=== PATIENT | female | born 1970 | race Caucasian/White ===

== ENCOUNTER 2023-06-10 16:34 | Emergency (ER) | payer MEDICAID, SELFPAY ==
[2023-06-10 17:10] VITALS: BP 138/81; PULSE 93; RESP 16; TEMP 36.2; O2SAT 96
--- NOTE | 2023-06-10 17:25 | ED_ITS ---
HPI - General Adult General Date Seen: 06/10/23 Chief complaint: Cough Stated complaint: Covid+ Time Seen by Provider: 06/10/23 17:20 Source: patient, family and RN notes reviewed Mode of arrival: ambulatory Limitations: no limitations History of Present Illness HPI narrative: Patient is a 52-year-old female accompanying her sister and [id number]. Her sister is here with a positive COVID test. She has maybe had some mild cough today. Overall she is not feeling ill. All 3 of them had COVID before and she had a rather benign course per report. She does have underlying diabetes and would like to be treated if she has it. No sore throat, no fevers, no body aches, no GI symptoms, no congestion. Related Data Home Medications Medication Instructions Recorded Confirmed gabapentin .ROUTE 06/10/23 metformin .ROUTE 06/10/23 Allergies Allergy/AdvReac Type Severity Reaction Status Date / Time eggs Allergy Uncoded 06/10/23 17:08 Review of Systems Status of ROS: Reports: 6 or more systems reviewed and unremarkable except as noted in History and below Exam Const: Vital Signs, click to edit/add: Vital Signs - 24 hr 06/10/23 17:10 Temperature 97.2 F L Pulse Rate [Right Pulse Oximeter] 93 Respiratory Rate 16 Blood Pressure [Ri ght Upper Arm] 138/81 Pulse Oximetry 96 Oxygen Delivery Me thod Room Air This obese 52-year-old female is alert, interactive, no apparent distress. Pupils equal round reactive, sclerae clear, extraocular muscles intact. Symmetr ical facial function/normal. Anterior nares normal. Oropharynx with peers tongue but otherwise normal mucosa, no exudates or erythema, speech is normal. Neck is supple, no cervical adenopathy, no thyromegaly masses or nodules. Lungs are clear, good air entry, no wheezing or crackles. CV regular rate and rhythm, no murmur, normal S1 and S2. Documenting provider has reviewed patient's vital signs: yes Course Course ED Course: Nursing staff has collected the COVID. Need to see if we can find prior creatinine on her and epic. Vital Signs Vital signs: Initial Vital Signs Temperature 97.2 F L 06/10/23 17:10 Temperature Source Temporal Artery Scan 06/10/23 17:10 Pulse Rate 93 06/10/23 17:10 Respiratory Rate 16 06/10/23 17:10 Blood Pressure 138/81 06/10/23 17:10 Blood Pressure Mean 100 06/10/23 17:10 Blood Pressure Position Sitting 06/10/23 17:10 Pulse Oximetry 96 06/10/23 17:10 Oxygen Delivery Method Room Air 06/10/23 17:10 Vital Signs Temperature 97.2 F L 06/10/23 17:10 Pulse Rate 93 06/10/23 17:10 Respiratory Rate 16 06/10/23 17:10 Blood Pressure 138/81 06/10/23 17:10 Pulse Oximetry 96 06/10/23 17:10 Oxygen Delivery Method Room Air 06/10/23 17:10 Temperature 97.2 F L 06/10/23 17:10 Pulse Rate 93 06/10/23 17:10 Respiratory Rate 16 06/10/23 17:10 Blood Pressure 138/81 06/10/23 17:10 Pulse Oximetry 96 06/10/23 17:10 Oxygen Delivery Method Room Air 06/10/23 17:10 Medical Decision Making Lab Data Lab results reviewed: Yes I reviewed the patient's lab results Labs: Lab Results 06/10/23 Range/Units 17:10 SARS-CoV-2 (PCR) Negative SARS-CoV-2 (Negative) Influenza Type A (PCR) Negative PCR FLU A (Negative) Influenza Type B (PCR) Negative PCR FLU B (Negative) RSV (PCR) Negative PCR RSV (Negative) Discharge Plan Discharge Clinical Impression: Close exposure to COVID-19 virus Patient Disposition: Home, Self-Care Condition: Stable Instructions: COVID-19: Slow the Coronavirus Spread (ED) Additional Instructions: Your COVID test is negative. Review handout, try to isolate from your sister to prevent catching COVID. Do recommend wearing a mask. If you become symptomatic, follow up in clinic or urgent care to get tested. Activity Level: Activity as Tolerated Prescriptions: No Action metformin .ROUTE gabapentin .ROUTE Follow Up/Referrals: Provider,Not a Local [Primary Care Provider] - Stand Alone Forms: [employer] Info Instructions
[2023-06-10 17:55] LABS: PCR FLU A Negative PCR FLU A (Negative); PCR FLU B Negative PCR FLU B (Negative); PCR RSV Negative PCR RSV (Negative)
[2023-06-10 17:58] LABS: SARS PCR* Negative SARS-CoV-2 (Negative)
[2023-06-10 18:20] VITALS: BP 138/81; PULSE 93; RESP 16; TEMP 36.2
== END 2023-06-10 18:22 | disposition home or self-care (01) ==
PROVIDERS: Emergency Provider Family Medicine
DX: U07.1 COVID-19 (principal)
CPT/HCPCS: 87631; 99282; 99283

== ENCOUNTER 2023-06-11 07:36 | Emergency (ER) | payer MEDICAID, SELFPAY ==
[2023-06-11 07:46] VITALS: BP 133/87; PULSE 99; RESP 20; TEMP 36.3; O2SAT 97; BMI 49.1
--- NOTE | 2023-06-11 08:01 | ED_ITS ---
HPI - General Adult General Date Seen: 06/11/23 Chief complaint: Cough Stated complaint: runny nose,sore throat Time Seen by Provider: 06/11/23 07:46 Source: patient Mode of arrival: ambulatory Limitations: no limitations History of Present Illness HPI narrative: Patient is a 52 year old female who presents here with wanting a prescription for Paxlovid. She notes that she was here yesterday, she tested negative yesterday which she is brought back home test which is positive. Her sister has COVID-19, and she lives with. A she denies a any chest pain, shortness of breath, said she does have a slightly sore throat, and also runny nose. She has no history of asthma or any lung disease. She does however have diabetes, hypertension, and reflux denies a history of kidney issues. Her current medications include metformin, gabapentin, metoprolol, lovastatin, hydrochlorothiazide, Protonix, magnesium, potassium, amlodipine, Treatments prior to arrival: none Related Data Home Medications Medication Instructions Recorded Confirmed gabapentin .ROUTE 06/10/23 metformin .ROUTE 06/10/23 amlodipine 10 mg tablet 10 mg PO DAILY 06/11/23 06/11/23 atorvastatin 10 mg tablet 10 mg PO DAILY 06/11/23 06/11/23 gabapentin 400 mg capsule mg PO 06/11/23 hydrochlorothiazide 25 mg tablet 25 mg PO DAILY 06/11/23 06/11/23 insulin glargine 100 unit/mL 22 unit subcut QPM 06/11/23 06/11/23 subcutaneous solution (Lantus U-100 Insulin) magnesium oxide 400 mg (241.3 mg 400 mg PO BID 06/11/23 06/11/23 magnesium) tablet metformin 1,000 mg tablet 1,000 mg PO BID 06/11/23 06/11/23 metoprolol tartrate 100 mg tablet 100 mg PO BID 06/11/23 06/11/23 pantoprazole 40 mg tablet,delayed 40 mg PO DAILY 06/11/23 06/11/23 release potassium chloride 20 mEq 20 meq PO DAILY 06/11/23 06/11/23 tablet,extended release(part/cryst) Previous Rx's Medication Instructions Recorded nirmatrelvir 300 mg (150 mg See Rx Instructions PO .COMPLEX 06/11/23 x2)-ritonavir 100 mg tablet,dose #30 ea pack (Paxlovid) Allergies Allergy/AdvReac Type Severity Reaction Status Date / Time eggs Allergy Uncoded 06/10/23 17:08 Review of Systems Status of ROS: Reports: 10 or more systems reviewed and unremarkable except as noted in History and below PFSH [facility] Social History Smoking Status: Never smoker How often do you have a drink containing alcohol: never AUDIT-C Alcohol total score: 0 Non-prescribed substance use: denies use Exam Narrative: Exam Narrative: Patient is seen in room 2, she appears to be in no apparent distress speaking normally to me, full sentences. Pupils equal round reactive to light, there is no scleral icterus redness, TMs bilaterally are normal oropharynx is normal her chest is good air entry bilaterally with no wheezing crackles noted, no respiratory distress. abdomen is soft, tenderness to palpation, no organomegaly, she is morbidly obese. Legs show no swelling tenderness rash numbness or rashes Const: Vital Signs, click to edit/add: Vital Signs - 24 hr 06/11/23 07:46 Temperature 97.3 F L Pulse Rate [Pulse Oximeter] 99 Respiratory Rate 20 Blood Pressure [Ri ght Upper Arm] 133/87 Pulse Oximetry 97 Oxygen Delivery Me thod Room Air Documenting provider has reviewed patient's vital signs: yes Course Vital Signs Vital signs: Initial Vital Signs Temperature 97.3 F L 06/11/23 07:46 Temperature Source Temporal Artery Scan 06/11/23 07:46 Pulse Rate 99 06/11/23 07:46 Respiratory Rate 20 06/11/23 07:46 Blood Pressure 133/87 06/11/23 07:46 Blood Pressure Mean 102 06/11/23 07:46 Blood Pressure Position Sitting 06/11/23 07:46 Pulse Oximetry 97 06/11/23 07:46 Oxygen Delivery Method Room Air 06/11/23 07:46 Vital Signs Temperature 97.3 F L 06/11/23 07:46 Pulse Rate 99 06/11/23 07:46 Respiratory Rate 20 06/11/23 07:46 Blood Pressure 133/87 06/11/23 07:46 Pulse Oximetry 97 06/11/23 07:46 Oxygen Delivery Method Room Air 06/11/23 07:46 Temperature 97.3 F L 09/24/23 07:46 Pulse Rate 99 06/11/23 07:46 Respiratory Rate 20 06/11/23 07:46 Blood Pressure 133/87 06/11/23 07:46 Pulse Oximetry 97 06/11/23 07:46 Oxygen Delivery Method Room Air 06/11/23 07:46 Medical Decision Making MDM Narrative Medical decision making narrative: I do think that she qualifies for the Paxlovid, she has some interactions with both the lovastatin and also the amlodipine both need to be stopped and then restarted 5 days after she is done the Paxlovid. I went over warning signs with her, and the risks benefits and side effects. Discharge Plan Discharge Clinical Impression: COVID-19 Patient Disposition: Home, Self-Care Condition: Stable Instructions: How To Wash Your Hands (ED), COVID-19 (Coronavirus Disease 2019) (ED), COVID-19 and Chronic Health Conditions (ED), COVID-19: Slow the Coronavirus Spread (ED), Face Coverings (Masks) and COVID-19 (ED), How to Recover from COVID-19 at Home (ED), Social Distancing Guidelines for COVID-19 (ED) Additional Instructions: I do agree that you need the Paxlovid for COVID. You do have a number of risk factors, take the medication as directed, you will have to however hold your amlodipine and your lovastatin, both medications can be restarted 5 days after you finish the Paxlovid. You have increasing shortness of breath, leg swelling, chest pain, he need to come back and be seen. Tylenol is the best medication for the achiness associated with this. Activity Level: Light activity Prescriptions: New Paxlovid 300 mg (150 mg x 2)-100 mg tablets,dose pack See Rx Instructions .ROUTE .COMPLEX Qty: 30 0RF Rx Instructions: take TWO 150 mg tablets of nirmatrelvir with ONE 100 mg tablet of ritonavir twice daily for 5 days No Action insulin glargine [Lantus U-100 Insulin] 100 unit/mL solution 22 unit subcut QPM atorvastatin 10 mg tablet 10 mg PO DAILY metoprolol tartrate 100 mg tablet 100 mg PO BID gabapentin 400 mg capsule PO potassium chloride 20 mEq tablet,ER particles/crystals 20 meq PO DAILY amlodipine 10 mg tablet 10 mg PO DAILY pantoprazole 40 mg tablet,delayed release (DR/EC) 40 mg PO DAILY metformin 1,000 mg tablet 1,000 mg PO BID hydrochlorothiazide 25 mg tablet 25 mg PO DAILY magnesium oxide 400 mg (241.3 mg magnesium) tablet 400 mg PO BID metformin .ROUTE gabapentin .ROUTE Follow Up/Referrals: Provider,Not a Local [Primary Care Provider] - Stand Alone Forms: [employer] Info Instructions
== END 2023-06-11 08:18 | disposition home or self-care (01) ==
PROVIDERS: Emergency Provider Family Medicine
DX: U07.1 COVID-19 (principal)
CPT/HCPCS: 99283

== ENCOUNTER 2023-08-18 08:45 | Emergency (ER) | payer MEDICAID, SELFPAY ==
[2023-08-18 08:52] VITALS: BP 143/82; PULSE 88; RESP 18; O2SAT 95; BMI 48.3
--- NOTE | 2023-08-18 09:06 | ED.GENADULT ---
HPI - General Adult General Chief complaint: Unspecified Complaint, Adult Stated complaint: reaction to shots Time Seen by Provider: 08/18/23 09:02 History of Present Illness HPI narrative: Patient had covid and shingles vaccines one month ago ( [facility]), one week ago developed redness and swelling to the area. DMII. Tried tylenol with no relief. 52-year-old woman presenting to the emergency department with concern of infection or reaction to vaccine. One month ago had both COVID and shingles vaccines injected in the left deltoid at the same time as she describes it. Was doing well generally but a week ago developed some redness and swelling in this area. Has gotten a little larger and more uncomfortable since. Underlying history of diabetes. Tried treating with acetaminophen. No fever. No blistering. Related Data Home Medications Medication Instructions Recorded Confirmed gabapentin .ROUTE 06/10/23 metformin .ROUTE 06/10/23 amlodipine 10 mg tablet 10 mg PO DAILY 06/11/23 08/18/23 atorvastatin 10 mg tablet 10 mg PO DAILY 06/11/23 08/18/23 gabapentin 400 mg capsule 400 - 800 mg PO TID 06/11/23 08/18/23 hydrochlorothiazide 25 mg tablet 25 mg PO DAILY 06/11/23 08/18/23 insulin glargine 100 unit/mL 22 unit subcut QPM 06/11/23 08/18/23 subcutaneous solution (Lantus U-100 Insulin) magnesium oxide 400 mg (241.3 mg 400 mg PO BID 06/11/23 06/11/23 magnesium) tablet metformin 1,000 mg tablet 1,000 mg PO BID 06/11/23 08/18/23 metoprolol tartrate 100 mg tablet 100 mg PO BID 06/11/23 08/18/23 pantoprazole 40 mg tablet,delayed 40 mg PO DAILY 06/11/23 08/18/23 release potassium chloride 20 mEq 20 meq PO DAILY 06/11/23 06/11/23 tablet,extended release(part/cryst) aspirin 81 mg capsule 81 mg PO DAILY 08/18/23 08/18/23 dicyclomine 20 mg tablet 20 mg PO QID PRN cramps 08/18/23 08/18/23 fluoxetine 10 mg capsule 10 mg PO DAILY 08/18/23 08/18/23 isosorbide mononitrate 30 mg 30 mg PO DAILY 08/18/23 08/18/23 tablet,extended release 24 hr liraglutide 0.6 mg/0.1 mL (18 mg/3 1.8 mg subcut DAILY 08/18/23 08/18/23 mL) subcutaneous pen injector (Victoza 2-Sunny) losartan 100 mg tablet 100 mg PO DAILY 08/18/23 08/18/23 pioglitazone 30 mg tablet (Actos) 30 mg PO DAILY 08/18/23 08/18/23 potassium chloride 20 mEq 20 meq PO DAILY 08/18/23 08/18/23 tablet,extended release(part/cryst) (Klor-Con M) Previous Rx's Medication Instructions Recorded nirmatrelvir 300 mg (150 mg See Rx Instructions PO .COMPLEX 06/11/23 x2)-ritonavir 100 mg tablet,dose #30 ea pack (Paxlovid) Allergies Allergy/AdvReac Type Severity Reaction Status Date / Time egg AdvReac Intermediate Vomiting Verified 08/18/23 08:56 Review of Systems Status of ROS: Reports: 6 or more systems reviewed and unremarkable except as noted in History and below PFSH [facility] Social History Smoking Status: Never smoker How often do you have a drink containing alcohol: never AUDIT-C Alcohol total score: 0 Non-prescribed substance use: denies use Exam Narrative: Exam Narrative: Pleasant. NAD. Engaging with phone when I enter the room. Breathing easily. Moving extremities without difficulty. She is well-perfused. Skin is warm and dry. Area in question is an oval patch at the mid left deltoid. Overlying intact to somewhat. This patch is faintly erythematous with mild calor and mildly tender to light touch. I do not see induration. This oval is about 5 x 3 cm. Superior and a little posterior to this also in the deltoid is another cm size [place] of similar appearing erythema. No induration no blistering. No rashes elsewhere in area skin that I can determine. Back is clear. Const: Vital Signs, click to edit/add: Vital Signs - 24 hr 08/18/23 08:52 Pulse Rate [Pulse Oximeter] 88 Respiratory Rate 18 Blood Pressure [Ri ght Upper Arm] 143/82 H Pulse Oximetry 95 Oxygen Delivery Me thod Room Air Documenting provider has reviewed patient's vital signs: yes Course Vital Signs Vital signs: Initial Vital Signs Temperature Source Temporal Artery Scan 08/18/23 08:52 Pulse Rate 88 08/18/23 08:52 Respiratory Rate 18 08/18/23 08:52 Blood Pressure 143/82 H 08/18/23 08:52 Blood Pressure Mean 102 08/18/23 08:52 Blood Pressure Position Sitting 08/18/23 08:52 Pulse Oximetry 95 08/18/23 08:52 Oxygen Delivery Method Room Air 08/18/23 08:52 Vital Signs Pulse Rate 88 08/18/23 08:52 Respiratory Rate 18 08/18/23 08:52 Blood Pressure 143/82 H 08/18/23 08:52 Pulse Oximetry 95 08/18/23 08:52 Oxygen Delivery Method Room Air 08/18/23 08:52 Pulse Rate 88 08/18/23 08:52 Respiratory Rate 18 08/18/23 08:52 Blood Pressure 143/82 H 08/18/23 08:52 Pulse Oximetry 95 08/18/23 08:52 Oxygen Delivery Method Room Air 08/18/23 08:52 Medical Decision Making MDM Narrative Medical decision making narrative: Does not appear to be a cellulitis. Does appear to be in injection reaction somewhat delayed I think. The possibly satellite eruption might make one think that this shingles vaccine is more likely to be the culprit here. I do not however see evidence otherwise of zoster. Does not seem to have a collection of fluid that would indicate abscess however I did return with an ultrasound to evaluate the area. I do not see evidence of cellulitic change or any cutaneous/subcutaneous fluid collection. Reassurance at this point. Watch for further spread or evolution. See patient discharge plan Discharge Plan Discharge Clinical Impression: Injection site reaction Patient Disposition: Home, Self-Care Condition: Stable Additional Instructions: Outline as discussed. I would apply a warm pack a couple of times daily over the next few days. If you want to apply a cool pack in addition I think that is fine as well if that helps it feel better. In addition to the acetaminophen, I would think about a taking ibuprofen or naproxen for discomfort. Follow up next week with your primary care provider as planned. Be seen sooner for marked increase in redness, heat, swelling, pain or of course any fever. This does not look to be a bacterial infection/cellulitis at this point. Prescriptions: No Action insulin glargine [Lantus U-100 Insulin] 100 unit/mL solution 22 unit subcut QPM atorvastatin 10 mg tablet 10 mg PO DAILY metoprolol tartrate 100 mg tablet 100 mg PO BID gabapentin 400 mg capsule 400 - 800 mg PO TID Rx Instructions: 400mg am, 400mg afternoon, 800mg HS potassium chloride 20 mEq tablet,ER particles/crystals 20 meq PO DAILY amlodipine 10 mg tablet 10 mg PO DAILY pantoprazole 40 mg tablet,delayed release (DR/EC) 40 mg PO DAILY metformin 1,000 mg tablet 1,000 mg PO BID hydrochlorothiazide 25 mg tablet 25 mg PO DAILY magnesium oxide 400 mg (241.3 mg magnesium) tablet 400 mg PO BID Paxlovid 300 mg (150 mg x 2)-100 mg tablets,dose pack See Rx Instructions .ROUTE .COMPLEX Qty: 30 0RF Rx Instructions: take TWO 150 mg tablets of nirmatrelvir with ONE 100 mg tablet of ritonavir twice daily for 5 days metformin .ROUTE gabapentin .ROUTE dicyclomine 20 mg tablet 20 mg PO QID PRN (Reason: cramps) losartan 100 mg tablet 100 mg PO DAILY Victoza 2-Sunny 0.6 mg/0.1 mL (18 mg/3 mL) pen injector 1.8 mg subcut DAILY isosorbide mononitrate 30 mg tablet extended release 24 hr 30 mg PO DAILY fluoxetine 10 mg capsule 10 mg PO DAILY potassium chloride [Klor-Con M20] 20 mEq tablet,ER particles/crystals 20 meq PO DAILY pioglitazone [Actos] 30 mg tablet 30 mg PO DAILY aspirin 81 mg capsule 81 mg PO DAILY Follow Up/Referrals: Provider,Not a Local [Primary Care Provider] - Stand Alone Forms: [facility] Info Instructions
== END 2023-08-18 09:52 | disposition home or self-care (01) ==
LOC: ED 09:48
PROVIDERS: Emergency Provider Family Medicine
DX: T50.Z95A Adverse effect of other vaccines and biological substances, initial encounter (principal)
CPT/HCPCS: 99282; 99284